=== PATIENT | female | born 1935 | race Caucasian/White ===

== ENCOUNTER 2016-11-04 14:50 | Outpatient (CLI) | payer MEDICARE, OTHER ==
--- NOTE | 2016-11-05 09:35 | Ultrasound Report ---
CAROTID DUPLEX: 11/04/2016 CLINICAL INDICATION: Vertigo in the evenings. TECHNIQUE: Real-time sonographic vascular imaging was performed by the licensed journeyman electrician through the carotid arteries utilizing both color-flow and Doppler spectral analysis. Multiple escrow representative static images were saved for review. Vessel PSV cm/sec 2D Plaque Estimate % ICA/CCA PSV EDV cm/sec % Stenosis RCCA Prox 97 -- RCCA Dist 76 14 RECA 127 -- RT BULB 88 -- 1.15 15 HUSSAIN Prox 70 -- 0.92 14 HUSSAIN Mid 104 -- 1.36 29 HUSSAIN Dist 89 -- 1.17 22 RVA 50 RVA flow direction: Antegrade. Vessel PSV cm/sec 2D Plaque Estimate % ICA/CCA PSV EDV cm/sec % Stenosis LCCA Prox 111 -- LCCA Dist 90 18 LECA 78 -- LFT BULB 43 -- 0.47 10 LICA Prox 80 -- 0.88 22 LICA Mid 69 -- 0.76 21 LICA Dist 82 -- 0.91 20 LVA 50 LVA flow direction: Antegrade. Velocity criteria are extrapolated from diameter data as defined by the Society of Radiologists in Ultrasound Consensus Conference Radiology 2003; 229; 340-346. Degree of Stenosis % ICA PSV cm/sec Plaque Estimate % ICA/CCA RSV Ratio ICA EDV cm/sec Normal < 125 None < 2.0 < 40 <50 < 125 < 50 < 2.0 < 40 50-69 125 - 130 >/= 50 2.0 - 4.0 40 - 100 >/= 70 but less than near occlusion > 230 >/= 50 > 4.0 > 100 Near occlusion High, low, or undetectable Visible lumen Variable Variable Total occlusion Undetectable No detectable lumen Not applicable Not applicable FINDINGS RIGHT: There is mild calcified plaquing in the right carotid bifurcation, without evidence of a focal hemodynamically significant stenosis. LEFT: There is mild calcified plaquing in the left carotid bifurcation, without evidence of a focal hemodynamically significant stenosis. The vertebral arteries demonstrate antegrade flow bilaterally. Note is made of a right thyroid nodule. Consider formal thyroid ultrasound for further characterization. IMPRESSION: NO EVIDENCE OF A FOCAL HEMODYNAMICALLY SIGNIFICANT CAROTID STENOSIS. MTDD
== END 2016-11-04 14:51 | disposition home or self-care (01) ==
LOC: DI 14:50
PROVIDERS: ATTEND Nurse Practitioner Family
DX: R42 Dizziness and giddiness (principal)
CPT/HCPCS: 93880

== ENCOUNTER 2018-01-28 08:47 | Outpatient (CLI) | payer MEDICARE, OTHER ==
[2018-01-28 09:18] LABS: BASOPHILS % (AUTO) 1.4 %; HGB - HEMOGLOBIN 12.1 g/dL (12.0-16.0); LYMPHOCYTES % (AUTO) 17.7 %; MEAN CORPUSCULAR HEMOGLOBIN 29.1 pg (27.0-31.0); MEAN CORPUSCULAR HGB CONC 32.8 g/dL (32.0-36.0); MEAN CORPUSCULAR VOLUME 88.6 fL (81.0-99.0); MEAN PLATELET VOLUME 7.7 fL (7.9-10.8); MONOCYTES % (AUTO) 7.8 %; NEUTROPHILS % (AUTO) 72.1 %; PLT - PLATELET COUNT 782 10^3/uL (130-450); RED BLOOD COUNT 4.18 10^6/uL (4.20-5.40); RED CELL DISTRIBUTION WIDTH 32.2 % (12.0-15.0); WHITE BLOOD COUNT 8.8 x10^3/uL (4.8-10.8)
[2018-01-28 09:21] LABS: ABNORMAL LYMPHS % (MANUAL) 0 %
[2018-01-28 10:09] LABS: BAND NEUTROPHILS % (MANUAL) 2 %; BASOPHILS # (MANUAL) 0.1 10^3/uL (0-0.1); BASOPHILS % (MANUAL) 1 %; EOSINOPHILS # (MANUAL) 0.3 10^3/uL (0-0.7); LYMPHOCYTES # (MANUAL) 1.6 10^3/uL (1.5-3.5); LYMPHOCYTES % (MANUAL) 15 %; MONOCYTES # (MANUAL) 0.9 10^3/uL (0.0-1.0); NEUTROPHILS % (MANUAL) 66 %
[2018-01-28 10:12] LABS: DIFFERENTIAL COMMENT MANUAL DIFFERENTIAL; PLATELET ESTIMATE, MANUAL INCREASED (>450,000) (NORMAL); PLATELET MORPHOLOGY 1+ GIANT PLATELETS (NORMAL)
== END 2018-01-28 08:48 | disposition home or self-care (01) ==
LOC: LAB 08:47
PROVIDERS: ATTEND Physician Assistant
DX: D64.9 Anemia, unspecified (principal); D47.3 Essential (hemorrhagic) thrombocythemia
CPT/HCPCS: 36415; 82728; 85025

== ENCOUNTER 2018-05-26 07:16 | Day surgery (SDC) | payer MEDICARE, OTHER ==
[~2018-05-26 07:16] MED LIST: BRIMONIDINE 0.2% OPHTH DROPS 5 ML ONE; BSS/LIDOCAINE/EPINEPHRINE 1 ML SYRINGE ONE; EPINEPHrine 1 MG/ML AMP ONE; TIMOLOL 0.5% OPHTH DROPS ONE; TRIAMCIN/MOXIFLOX OPHTHALMIC 0.6 ML VIAL IO ONE; VANCOMYCIN OPHTHALMI 8MG/0.8ML 8 MG/0.8 ML SYRINGE IO ONE
[2018-05-26] MEDS ORDERED: KETOROLAC 0.45% OPHTH DROPS ONE (07:22)
[2018-05-26] MEDS ORDERED: PHENYLEPHRINE 2.5% OPHTH 2 ML DROPS ONE (07:22)
[2018-05-26] MEDS ORDERED: CYCLOPENTOLATE 1% OPHTH DROPS 2 ML ONE (07:23)
[2018-05-26] MEDS ORDERED: PROPARACAINE 0.5% OPHTH DROPS 15 ML ONE (07:23)
[2018-05-26] MEDS ORDERED: KETOROLAC 0.45% OPHTH DROPS LEFTEYE ONE (07:45)
[2018-05-26] MEDS ORDERED: PROPARACAINE 0.5% OPHTH DROPS 15 ML LEFTEYE ONE ×2 (07:45→08:44)
[2018-05-26] MEDS ORDERED: CYCLOPENTOLATE 1% OPHTH DROPS 2 ML LEFTEYE ONE (07:45)
[2018-05-26] MEDS ORDERED: PHENYLEPHRINE 2.5% OPHTH 2 ML DROPS LEFTEYE ONE (07:45)
[2018-05-26] MEDS ORDERED: LACTATED RINGERS 500 ML IV ONE (07:52)
--- NOTE | 2018-05-26 07:55 | ANESTHESIA ---
Pre-Anesthesia VS, & Labs - Diagnosis left senile combined cataract - Procedure left extraction cataract with lens implant Vital Signs: Temp Pulse Resp BP Pulse Ox 36.6 C 16 132/83 H 98 05/26/18 07:39 05/26/18 07:39 05/26/18 07:39 05/26/18 07:39 Height 5 ft 4 in Weight (kg) 50 kg Body Mass Index 18.4 - Is Patient ?: Not Applicable - Lab Results Lab results reviewed: Yes Home Medications and Allergies Home Medications: Ambulatory Orders Medication Instructions Recorded Confirmed Calcium/Magnesium/Zinc 1 tab PO DAILY 03/02/18 05/25/18 [[id number]-[id number]-Zdfj Tablet] Folic Acid 1 tab PO DAILY 03/02/18 05/25/18 B Complex with Vitamin C [Vitamin 1 each PO DAILY 05/25/18 05/25/18 B-Complex with Vit C] Allergies/Adverse Reactions: Allergies Allergy/AdvReac Type Severity Reaction Status Date / Time No Known Drug Allergies Allergy Verified 05/25/18 14:39 Anes History & Medical History - Anesthetic History Anesthesia Complications: reports: No previous complications Family history of Anesthesia Complications: Denies Family history of Malignant Hyperthermia: Denies - Medical History Cardiovascular: reports: None Pulmonary: reports: None Gastrointestinal: reports: None Urinary: reports: None Neuro: reports: None Musculoskeletal: reports: Rheumatoid arthritis Endocrine/Autoimmune: reports: None Blood Disorders: reports: Anemia Skin: reports: None Exam General: Alert, Oriented x3, Cooperative, No acute distress Dental: Dentures full Upper, Dentures full Lower Mouth Openin Fingerbreadth Neck Mobility: Normal Mallampati classification: II Thyromental Distance: greater than 6 cm Respiratory: Lungs clear, Normal breath sounds, No respiratory distress, No accessory muscle use Cardiovascular: Normal S1, Normal S2, Other (murmur) Mental/Cognitive Status: Alert/Oriented X3, Normal for patient Cognitive Status: Within normal limits Plan Anesthesia Type: MAC Consent for Procedure(s) Verified and Reviewed: Yes Code Status: Attempt Resuscitation ASA classification: 1-Healthy patient Is this case an emergency?: No
[2018-05-26] MEDS ORDERED: VANCOMYCIN OPHTHALMI 8MG/0.8ML 8 MG/0.8 ML SYRINGE IO ONE (08:42)
[2018-05-26] MEDS ORDERED: BRIMONIDINE 0.2% OPHTH DROPS 5 ML OPTH ONE (08:42)
[2018-05-26] MEDS ORDERED: EPINEPHrine 1 MG/ML AMP IR ONE (08:42)
[2018-05-26] MEDS ORDERED: TIMOLOL 0.5% OPHTH DROPS OPTH ONE (08:43)
[2018-05-26] MEDS ORDERED: BSS/LIDOCAINE/EPINEPHRINE 1 ML SYRINGE IO ONE (08:43)
[2018-05-26] MEDS ORDERED: CHONDR SULF/HYALURONATE SYRINGE IO ONE (08:43)
[2018-05-26] MEDS ORDERED: TRIAMCIN/MOXIFLOX/VANCO 1 ML VIAL IO ONE (08:43)
[2018-05-26] MEDS ORDERED: MIDAZOLAM 2 MG/2 ML VIAL IVP ONE (08:50)
[2018-05-26 09:10] VITALS: BP 113/66
--- NOTE | 2018-05-26 11:26 | OPERATIVE REPORT ---
DATE OF SERVICE: 05/26/2018 Physician: Farhat Silva MD PREOPERATIVE DIAGNOSIS: Visually significant cataract, left eye. This was her first cataract surger y. POSTOPERATIVE DIAGNOSIS: Visually significant cataract, left eye. This was her first cataract surge ry. NAME OF PROCEDURE: Phacoemulsification with posterior chamber intraocular lens implant, left eye. SURGEON: Farhat Silva MD ANESTHESIA: Monitored anesthesia care. COMPLICATIONS: None. OPERATIVE INDICATIONS: This is an 83-year-old woman with progressive vision loss in the left eye due to 3+ nuclear sclerotic and vacuolar cataract. Best corrected visual acuity was 20/50, with glare t o 20/250 in the left eye. Indications for surgery are overall decrease in vision, difficulty seeing street signs, difficulty driving in low light or at night, difficulty driving at night because of hea dlights from other vehicles and/or street lights, and difficulty with glare or bright lights in any s ituation. She was consented at length concerning risks and benefits of cataract surgery, after which she expressed a desire to proceed with surgery. OPERATIVE PROCEDURE: The patient was taken into OR #3 and placed under monitored anesthesia care. A surgical timeout was conducted confirming correct patient, correct procedure, and correct surgical s ite. She was given topical anesthesia, and then prepped and draped in the usual sterile fashion. Th e eye was entered at the 6 and 3 o'clock positions. Intracameral Shugarcaine was injected into the a nterior chamber, followed by Viscoat. A continuous-tear curvilinear capsulorrhexis was performed. T he nucleus was hydrodissected and phacoemulsified. The cortex was evacuated using automated infusion and aspiration. Provisc was injected in the capsular bag, and a 22.5 diopter intraocular lens inser kiara in the bag. Approximately 0.8 mL of a mixture of triamcinolone, moxifloxacin and vancomycin was injected subconjunctivally in the superior quadrant for infection and inflammation prophylaxis. I an d A was used to evacuate the viscoelastic materials. The eye was inflated to physiologic pressure us ing balanced salt solution, and found to be watertight. The patient was taken from the operating daniella m in good condition, and given postoperative instructions. TD: 05/26/2018 09:11
== END 2018-05-26 07:17 | disposition home or self-care (01) ==
LOC: SDS 07:16
PROVIDERS: ATTEND Ophthalmology
PROC: 08RK3JZ Replacement of Left Lens with Synthetic Substitute, Percutaneous Approach (ICD-10-PCS; principal; 2018-05-26 08:30)
DX: H25.812 Combined forms of age-related cataract, left eye (principal)
CPT/HCPCS: 66984; A9270; J3490; V2632

== ENCOUNTER 2019-11-07 13:18 | Outpatient (CLI) | payer MEDICARE, OTHER ==
--- NOTE | 2019-11-08 10:12 | XRAY Report ---
Reason: COUGH Procedure Date: 11/07/2019 Accession Number: [id number] / [id number] Procedure: XR - Chest 2 View X-Ray CPT Code: 39094 Final Report FULL RESULT: EXAM: CHEST RADIOGRAPHY EXAM DATE: 11/07/2019 01:42 PM. CLINICAL HISTORY: Cough. COMPARISON: None. TECHNIQUE: 2 views. FINDINGS: Lungs/Pleura: Hyperinflation. Mild scarring in the upper lobes. No focal infiltrate or effusion. Mediastinum: Heart and mediastinal contours are unremarkable. Other: Mild chronic appearing compression deformities of multiple thoracic vertebra, approximately T6-T11 on the order of 10-15% each. Diffuse osteopenia. IMPRESSION: 1. Hyperinflation and some scarring consistent with emphysema. No infiltrate. 2. Mild chronic midthoracic compression deformities. Diffuse osteopenia. RADIA
== END 2019-11-07 13:19 | disposition home or self-care (01) ==
LOC: DI 13:18
PROVIDERS: ATTEND Nurse Practitioner Family
DX: R05 Cough (principal)
CPT/HCPCS: 71046

== ENCOUNTER 2020-04-19 08:46 | Outpatient (CLI) | payer MEDICARE, OTHER | END 2020-04-19 08:47 | disposition home or self-care (01) | LOC: DI 08:46 | PROVIDERS: ATTEND Physician Assistant | DX: I35.0 Nonrheumatic aortic (valve) stenosis (principal); I07.1 Rheumatic tricuspid insufficiency | CPT/HCPCS: 93306 ==

== ENCOUNTER 2020-08-15 13:07 | Outpatient (CLI) | payer MEDICARE, OTHER ==
--- NOTE | 2020-08-15 14:46 | XRAY Report ---
PROCEDURE: Chest 2 View X-Ray INDICATIONS: PAIN IN THORACIC SPINE TECHNIQUE: 2 view(s) of the chest. COMPARISON: None. FINDINGS: Surgical changes and devices: None. Lungs and pleura: Bilateral pleural effusions. Diffuse interstitial prominence with suggestion of vas cular congestion. No focal consolidation. No pneumothorax. Mediastinum: Mediastinal contours are stable. Heart size is mildly enlarged. Bones and chest wall: Diffuse osteopenia. Relatively stable appearance of chronic anterior compressi on deformities of the midthoracic spine with associated increased thoracic kyphosis. No suspicious erin ny abnormalities. Soft tissues appear unremarkable. IMPRESSION: 1. Mild cardiomegaly and bilateral pleural effusions with findings consistent with pulmonary edema/CH F. 2. Diffuse osteopenia with relatively stable appearance of mild anterior compression deformities of t he mid thoracic spine. Reviewed by: Juma Smart MD on 08/15/2020 2:45 PM PST Approved by: Juma Smart MD on 08/15/2020 2:45 PM PST Station ID: [id number]
== END 2020-08-15 13:08 | disposition home or self-care (01) ==
LOC: DI.S 13:07
PROVIDERS: ATTEND Nurse Practitioner Family
DX: I51.7 Cardiomegaly (principal); J90 Pleural effusion, not elsewhere classified; M85.88 Other specified disorders of bone density and structure, other site
CPT/HCPCS: 71046

== ENCOUNTER 2020-10-03 13:34 | Outpatient (CLI) | payer MEDICARE, OTHER | END 2020-10-03 13:35 | disposition home or self-care (01) | LOC: RT 13:34 | PROVIDERS: ATTEND Internal Medicine Cardiovascular Disease | DX: I50.9 Heart failure, unspecified (principal) | CPT/HCPCS: 93005 ==

== ENCOUNTER 2020-10-04 11:44 | Outpatient (CLI) | payer MEDICARE, OTHER ==
--- NOTE | 2020-10-04 14:28 | XRAY Report ---
PROCEDURE: Chest 2 View X-Ray INDICATIONS: BILATERAL PLEURAL EFFUSION TECHNIQUE: 2 view(s) of the chest. COMPARISON: 08/15/2020. FINDINGS: Surgical changes and devices: None. Lungs and pleura: There is mild diffuse interstitial prominence with hyperaeration and flattening of the hemidiaphragms. Previously seen bilateral pleural effusions have nearly completely resolved. Resi dual blunting of the bilateral costophrenic angles may represent tiny pleural effusions versus chroni c pleural thickening/scarring. No pneumothorax. No focal consolidation. Mediastinum: Mediastinal contours are stable. Heart size is enlarged. Bones and chest wall: No suspicious bony abnormalities. Soft tissues appear unremarkable. Diffuse osteopenia. Stable appearance of chronic anterior compression deformities of the midthoracic spine wi th associated thoracic kyphosis. IMPRESSION: 1. Near complete resolution of previously seen bilateral pleural effusions. Persistent blunting of th e bilateral costophrenic angles may represent tiny residual pleural effusion versus chronic pleural t hickening or scarring as there are findings compatible with chronic obstructive pulmonary physiology. 2. Cardiomegaly. 3. Diffuse osteopenia with stable appearance of mild anterior compression deformities of the midthora cic spine. Reviewed by: Juma Smart MD on 10/04/2020 2:27 PM PST Approved by: Juma Smart MD on 10/04/2020 2:27 PM PST Station ID: [id number]
== END 2020-10-04 11:45 | disposition home or self-care (01) ==
LOC: DI.S 11:44
PROVIDERS: ATTEND Nurse Practitioner Family
DX: J90 Pleural effusion, not elsewhere classified (principal); I51.7 Cardiomegaly

== ENCOUNTER 2020-10-31 08:00 | Outpatient (CLI) | payer MEDICARE, OTHER ==
[2020-10-31 10:51] LABS: CREATININE 0.7 mg/dL (0.4-1.0); POTASSIUM 5.7 mmol/L (3.5-5.0)
== END 2020-10-31 23:59 | disposition home or self-care (01) ==
LOC: LAB 08:00
PROVIDERS: ATTEND Internal Medicine Cardiovascular Disease
DX: I48.0 Paroxysmal atrial fibrillation (principal); R06.09 Other forms of dyspnea
CPT/HCPCS: 36415; 80048

== ENCOUNTER 2020-10-31 11:51 | Outpatient (CLI) | payer MEDICARE, OTHER ==
[2020-10-31 12:13] LABS: BASOPHILS # (AUTO) 0.1 10^3/uL (0.0-0.1); BASOPHILS % (AUTO) 1.2 %; EOSINOPHILS # (AUTO) 0.1 10^3/uL (0.0-0.7); EOSINOPHILS % (AUTO) 0.7 %; HGB - HEMOGLOBIN 12.5 g/dL (12.0-16.0); LYMPHOCYTES # (AUTO) 1.5 10^3/uL (1.5-3.5); LYMPHOCYTES % (AUTO) 13.9 %; MEAN CORPUSCULAR HEMOGLOBIN 31.7 pg (27.0-31.0); MEAN CORPUSCULAR HGB CONC 31.3 g/dL (32.0-36.0); MEAN CORPUSCULAR VOLUME 101.5 fL (81.0-99.0); MEAN PLATELET VOLUME 9.5 fL (7.9-10.8); MONOCYTES # (AUTO) 0.6 10^3/uL (0.0-1.0); MONOCYTES % (AUTO) 5.6 %; NEUTROPHILS # (AUTO) 8.1 10^3/uL (1.5-6.6); NEUTROPHILS % (AUTO) 75.2 %; PLT - PLATELET COUNT 772 10^3/uL (130-450); RED BLOOD COUNT 3.94 10^6/uL (4.20-5.40); RED CELL DISTRIBUTION WIDTH 28.9 % (12.0-15.0); WHITE BLOOD COUNT 10.7 x10^3/uL (4.8-10.8)
[2020-10-31 12:16] LABS: SLIDE REVIEW? Indicated
[2020-10-31 12:22] LABS: INR 1.3 (0.8-1.2)
[2020-10-31 12:43] LABS: PLATELET ESTIMATE, MANUAL INCREASED (>450,000) (NORMAL); PLATELET MORPHOLOGY NORMAL APPEARANCE (NORMAL)
[2020-10-31 12:44] LABS: WBC MORPHOLOGY (MULTIPLE) NORMAL APPEARANCE (NORMAL)
[2020-10-31 12:53] LABS: ALBUMIN 4.6 g/dL (3.2-5.5); ALBUMIN/GLOBULIN RATIO 1.6 (1.0-2.2); ALKALINE PHOSPHATASE 101 IU/L (42-121); ALT ALANINE AMINOTRANSFERASE 22 IU/L (10-60); AST ASPARTATE AMINOTRANSFERASE 29 IU/L (10-42); BILIRUBIN,TOTAL 0.9 mg/dL (0.2-1.0); BUN - BLOOD UREA NITROGEN 19 mg/dL (6-20); CALCIUM 9.9 mg/dL (8.5-10.3); CARBON DIOXIDE - CO2 29 mmol/L (21-32); CHLORIDE 95 mmol/L (101-111); CHOL/HDL RATIO 2.4 (<4.4); CHOLESTEROL 157 mg/dL; CREATININE 0.7 mg/dL (0.4-1.0); GFR - MDRD 80 (>89); GLUCOSE 89 mg/dL (70-100); HDL CHOLESTEROL 66 mg/dL; LDL CHOLESTEROL,CALCULATED 80 mg/dL; LDL/HDL RATIO 1.2 (<4.4); SODIUM 137 mmol/L (135-145); TOTAL PROTEIN 7.5 g/dL (6.7-8.2); TRIGLYCERIDES 53 mg/dL; VLDL CHOLESTEROL 11 mg/dL
[2020-10-31 13:04] LABS: THYROID STIMULATING HORMONE 1.8 uIU/mL (0.34-5.60)
== END 2020-10-31 11:52 | disposition home or self-care (01) ==
LOC: LAB 11:51
PROVIDERS: ATTEND Internal Medicine Cardiovascular Disease
DX: I48.0 Paroxysmal atrial fibrillation (principal); I50.9 Heart failure, unspecified; R06.09 Other forms of dyspnea
CPT/HCPCS: 36415; 80048; 80053; 80061; 83721; 83880; 84443; 85025; 85610

== ENCOUNTER 2020-12-06 13:51 | Outpatient (CLI) | payer MEDICARE, OTHER | END 2020-12-06 13:52 | disposition home or self-care (01) | LOC: LAB.S 13:51 | PROVIDERS: ATTEND Internal Medicine Cardiovascular Disease | DX: I48.20 Chronic atrial fibrillation, unspecified (principal) | CPT/HCPCS: 85610 ==

== ENCOUNTER 2020-12-18 10:07 | Outpatient (CLI) | payer MEDICARE, OTHER ==
[2020-12-18 10:28] LABS: CALCIUM 9.3 mg/dL (8.5-10.3); CREATININE 0.7 mg/dL (0.4-1.0); POTASSIUM 4.8 mmol/L (3.5-5.0)
== END 2020-12-18 10:08 | disposition home or self-care (01) ==
LOC: LAB 10:07
PROVIDERS: ATTEND Internal Medicine Cardiovascular Disease
DX: I48.0 Paroxysmal atrial fibrillation (principal); R06.09 Other forms of dyspnea
CPT/HCPCS: 36415; 80048

== ENCOUNTER 2020-12-20 11:42 | Outpatient (CLI) | payer MEDICARE, OTHER | END 2020-12-20 11:43 | disposition home or self-care (01) | LOC: LAB 11:42 | PROVIDERS: ATTEND Internal Medicine Cardiovascular Disease | DX: I48.20 Chronic atrial fibrillation, unspecified (principal) | CPT/HCPCS: 85610 ==

== ENCOUNTER 2020-12-23 10:18 | Outpatient (CLI) | payer MEDICARE, OTHER | END 2020-12-23 10:19 | disposition home or self-care (01) | LOC: LAB 10:18 | PROVIDERS: ATTEND Internal Medicine Cardiovascular Disease | DX: I48.20 Chronic atrial fibrillation, unspecified (principal) | CPT/HCPCS: 85610 ==

== ENCOUNTER 2020-12-31 12:31 | Outpatient (CLI) | payer MEDICARE, OTHER ==
[2020-12-31 14:57] LABS: BASOPHILS # (AUTO) 0.2 10^3/uL (0.0-0.1); BASOPHILS % (AUTO) 1.1 %; EOSINOPHILS # (AUTO) 0.1 10^3/uL (0.0-0.7); EOSINOPHILS % (AUTO) 0.5 %; LYMPHOCYTES # (AUTO) 1.6 10^3/uL (1.5-3.5); LYMPHOCYTES % (AUTO) 7.1 %; MEAN CORPUSCULAR HEMOGLOBIN 29.7 pg (27.0-31.0); MEAN CORPUSCULAR VOLUME 95.9 fL (81.0-99.0); MEAN PLATELET VOLUME 10.4 fL (7.9-10.8); MONOCYTES # (AUTO) 0.8 10^3/uL (0.0-1.0); MONOCYTES % (AUTO) 3.6 %; NEUTROPHILS # (AUTO) 18.4 10^3/uL (1.5-6.6); NEUTROPHILS % (AUTO) 82.2 %; NRBC ABSOLUTE COUNT (AUTO) 0.03 x10^3/uL; NUCLEATED RED BLOOD CELLS AUTO 0.1 /100WBC; RED BLOOD COUNT 4.38 10^6/uL (4.20-5.40); WHITE BLOOD COUNT 22.4 x10^3/uL (4.8-10.8)
[2020-12-31 15:05] LABS: PLT - PLATELET COUNT 1035 10^3/uL (130-450)
[2020-12-31 15:49] LABS: % IRON SATURATION 14 % (20-50); BILIRUBIN,DIRECT 0.2 mg/dL (0.1-0.5); BILIRUBIN,TOTAL 1.2 mg/dL (0.2-1.0); BUN - BLOOD UREA NITROGEN 16 mg/dL (6-20); CALCIUM 9.3 mg/dL (8.5-10.3); CARBON DIOXIDE - CO2 30 mmol/L (21-32); CHLORIDE 96 mmol/L (101-111); CHOL/HDL RATIO 2.8 (<4.4); CHOLESTEROL 152 mg/dL; CREATININE 0.7 mg/dL (0.4-1.0); GFR - MDRD 80 (>89); GLUCOSE 122 mg/dL (70-100); HDL CHOLESTEROL 54 mg/dL; IRON 41 ug/dL (28-170); LDL CHOLESTEROL,CALCULATED 83 mg/dL; LDL/HDL RATIO 1.5 (<4.4); POTASSIUM 4.4 mmol/L (3.5-5.0); SODIUM 132 mmol/L (135-145); TOTAL IRON BINDING CAPACITY 302 ug/dL (250-450); TRANSFERRIN 216 mg/dL (192-382); TRIGLYCERIDES 77 mg/dL; VLDL CHOLESTEROL 15 mg/dL
--- NOTE | 2020-12-31 15:56 | XRAY Report ---
PROCEDURE: Chest 2 View X-Ray INDICATIONS: PLEURAL EFFUSION TECHNIQUE: 2 view(s) of the chest. COMPARISON: None. FINDINGS: Surgical changes and devices: None. Lungs and pleura: No pleural effusions or pneumothorax. Lungs are abnormal with large lung volumes consistent with severe COPD and also there is a pattern of bilateral patchy alveolar airspace disease seen at the mid and lower lungs, this may reflect conventional pneumonia or even atypical pneumonia. Very slight subpulmonic pleural effusions can be seen blunting the costophrenic sulcus of each hyper expanded lung.. Mediastinum: Mediastinal contours are normal. Heart size is enlarged. Bones and chest wall: No suspicious bony abnormalities. Soft tissues appear unremarkable. IMPRESSION: Chronic lung disease, COPD, cardiomegaly and slight subpulmonic pleural effusions. Patch y alveolar airspace disease, potentally atypical pneumonia. The amount of pleural fluid present is no t sufficient for thoracentesis. Reviewed by: Rocael Nathan MD on 12/31/2020 3:55 PM PDT Approved by: Rocael Nathan MD on 12/31/2020 3:55 PM PDT Station ID: [id number]
[2020-12-31 15:57] LABS: PT - PROTHROMBIN TIME 21.5 secs (9.9-12.6)
[2020-12-31 15:59] LABS: PLATELET ESTIMATE, MANUAL INCREASED (>450,000) (NORMAL); PLATELET MORPHOLOGY 1+ LARGE PLATELETS (NORMAL)
== END 2020-12-31 12:32 | disposition home or self-care (01) ==
LOC: DI.S 12:31
PROVIDERS: ATTEND Nurse Practitioner Family
DX: J44.9 Chronic obstructive pulmonary disease, unspecified (principal); I51.7 Cardiomegaly; I48.20 Chronic atrial fibrillation, unspecified; I10 Essential (primary) hypertension; E55.9 Vitamin D deficiency, unspecified; Z13.220 Encounter for screening for lipoid disorders; D50.9 Iron deficiency anemia, unspecified; R17 Unspecified jaundice; J90 Pleural effusion, not elsewhere classified
CPT/HCPCS: 36415; 80048; 80061; 82247; 82248; 82306; 82607; 83540; 83721; 84466; 85025; 85610

== ENCOUNTER 2021-01-03 08:00 | Outpatient (CLI) | payer MEDICARE, OTHER ==
--- NOTE | 2021-01-03 18:29 | XRAY Report ---
PROCEDURE: Chest 2 View X-Ray INDICATIONS: SHORTNESS OF BREATH/ADVERSE EFFECT OF MEDICATION TECHNIQUE: 2 views of the chest. COMPARISON: Chest radiographs 12/31/2020 and 10/04/2020. FINDINGS: Surgical changes and devices: None. Lungs and pleura: The lungs are hyperexpanded bilaterally. Trace bilateral pleural effusions do not appear significantly changed when compared to the radiographs from 12/31/2020. No pneumothorax. Interst itial prominence is again seen throughout both lungs. Mild bibasilar opacities again may represent co nsolidations. Mediastinum: Mediastinal contours are normal. Heart size is enlarged and stable. Bones and chest wall: There is stenosis opinion. Anterior wedging deformities in the midthoracic spin e do not appear significant changed when compared to recent prior radiographs. IMPRESSION: 1. Overall, no significant change when compared to the radiographs from 12/31/2020. 2. Small airspace opacities are again seen in the lung bases bilaterally that may represent atelecta sis, edema, or pneumonia. 3. Stable cardiomegaly. Trace bilateral pleural effusions are unchanged. 4. Hyperexpanded lungs can be seen in the setting of COPD. Reviewed by: Galen Guzman MD on 01/03/2021 6:28 PM PDT Approved by: Galen Guzman MD on 01/03/2021 6:28 PM PDT Station ID: [id number]
== END 2021-01-03 23:59 | disposition home or self-care (01) ==
LOC: DI.S 08:00
PROVIDERS: ATTEND Physician Assistant Medical
DX: T50.905A Adverse effect of unspecified drugs, medicaments and biological substances, initial encounter (principal); J44.9 Chronic obstructive pulmonary disease, unspecified

== ENCOUNTER 2021-01-03 11:38 | Outpatient (CLI) | payer MEDICARE, OTHER ==
[2021-01-03 20:09] LABS: EOSINOPHILS % (AUTO) 0.5 %; HCT - HEMATOCRIT 40.2 % (37.0-47.0); LYMPHOCYTES % (AUTO) 7.2 %; MEAN CORPUSCULAR HEMOGLOBIN 30.4 pg (27.0-31.0); MEAN CORPUSCULAR HGB CONC 32.3 g/dL (32.0-36.0); MEAN CORPUSCULAR VOLUME 93.9 fL (81.0-99.0); MEAN PLATELET VOLUME 9.7 fL (7.9-10.8); MONOCYTES % (AUTO) 5.1 %; NEUTROPHILS % (AUTO) 80.7 %; PLT - PLATELET COUNT 783 10^3/uL (130-450); RED BLOOD COUNT 4.28 10^6/uL (4.20-5.40); RED CELL DISTRIBUTION WIDTH 28.1 % (12.0-15.0); WHITE BLOOD COUNT 20.3 x10^3/uL (4.8-10.8)
[2021-01-03 20:19] LABS: ALBUMIN 4.1 g/dL (3.2-5.5); ALBUMIN/GLOBULIN RATIO 1.4 (1.0-2.2); CALCIUM 9.3 mg/dL (8.5-10.3); CREATININE 0.7 mg/dL (0.4-1.0); TOTAL PROTEIN 7.1 g/dL (6.7-8.2)
[2021-01-03 20:29] LABS: ABNORMAL LYMPHS % (MANUAL) 0 %
[2021-01-03 21:05] LABS: BAND NEUTROPHILS % (MANUAL) 19 %; EOSINOPHILS # (MANUAL) 0.2 10^3/uL (0-0.7); LYMPHOCYTES # (MANUAL) 0.8 10^3/uL (1.5-3.5); LYMPHOCYTES % (MANUAL) 4 %; MONOCYTES # (MANUAL) 0.8 10^3/uL (0.0-1.0); NEUTROPHILS # (MANUAL) 18.5 10^3/uL (1.5-6.6)
[2021-01-03 21:08] LABS: PLATELET ESTIMATE, MANUAL INCREASED (>450,000) (NORMAL)
[2021-01-03 21:09] LABS: DIFFERENTIAL COMMENT MANUAL DIFFERENTIAL
== END 2021-01-03 11:39 | disposition home or self-care (01) ==
LOC: LAB.S 11:38
PROVIDERS: ATTEND Internal Medicine Cardiovascular Disease
DX: I48.20 Chronic atrial fibrillation, unspecified (principal); D47.3 Essential (hemorrhagic) thrombocythemia; J15.9 Unspecified bacterial pneumonia
CPT/HCPCS: 36415; 80053; 85025; 85610

== ENCOUNTER 2021-01-06 13:33 | Outpatient (CLI) | payer MEDICARE, OTHER | END 2021-01-06 13:34 | disposition home or self-care (01) | LOC: LAB.S 13:33 | PROVIDERS: ATTEND Internal Medicine Cardiovascular Disease | DX: I48.20 Chronic atrial fibrillation, unspecified (principal) | CPT/HCPCS: 85610 ==

== ENCOUNTER 2021-01-09 10:48 | Outpatient (CLI) | payer MEDICARE, OTHER | END 2021-01-09 10:49 | disposition home or self-care (01) | LOC: LAB 10:48 | PROVIDERS: ATTEND Internal Medicine Cardiovascular Disease | DX: I48.20 Chronic atrial fibrillation, unspecified (principal) | CPT/HCPCS: 85610 ==

== ENCOUNTER 2021-01-13 13:07 | Outpatient (CLI) | payer MEDICARE, OTHER | END 2021-01-13 13:08 | disposition home or self-care (01) | LOC: LAB.S 13:07 | PROVIDERS: ATTEND Internal Medicine Cardiovascular Disease | DX: I48.20 Chronic atrial fibrillation, unspecified (principal) | CPT/HCPCS: 85610 ==

== ENCOUNTER 2021-01-16 09:45 | Outpatient (CLI) | payer MEDICARE, OTHER | END 2021-01-16 09:46 | disposition home or self-care (01) | LOC: LAB.S 09:45 | PROVIDERS: ATTEND Internal Medicine Cardiovascular Disease | DX: I48.20 Chronic atrial fibrillation, unspecified (principal) | CPT/HCPCS: 85610 ==

== ENCOUNTER 2021-01-20 11:04 | Outpatient (CLI) | payer MEDICARE, OTHER | END 2021-01-20 11:05 | disposition home or self-care (01) | LOC: LAB.S 11:04 | PROVIDERS: ATTEND Internal Medicine Cardiovascular Disease | DX: I48.20 Chronic atrial fibrillation, unspecified (principal) | CPT/HCPCS: 85610 ==

== ENCOUNTER 2021-01-28 10:07 | Outpatient (CLI) | payer MEDICARE, OTHER | END 2021-01-28 10:08 | disposition home or self-care (01) | LOC: DI 10:07 | PROVIDERS: ATTEND Internal Medicine Cardiovascular Disease | DX: I48.91 Unspecified atrial fibrillation (principal); I35.0 Nonrheumatic aortic (valve) stenosis | CPT/HCPCS: 93306 ==

== ENCOUNTER 2021-01-31 10:24 | Outpatient (CLI) | payer MEDICARE, OTHER | END 2021-01-31 10:25 | disposition home or self-care (01) | LOC: LAB.S 10:24 | PROVIDERS: ATTEND Internal Medicine Cardiovascular Disease | DX: I48.20 Chronic atrial fibrillation, unspecified (principal) | CPT/HCPCS: 36416; 85610 ==

== ENCOUNTER 2021-02-01 | Outpatient (CLI) | payer MEDICARE, OTHER ==
--- NOTE | 2021-02-01 12:38 | Ultrasound Report ---
PROCEDURE: Abdomen Limited INDICATIONS: SPLENOMEGALY TECHNIQUE: Real-time focused scanning was performed of the abdomen, with image documentation. COMPARISON: 03/16/2018 FINDINGS: The spleen measures 17 x 4.5 x 6.8 cm, with a calculated volume of 683 cc. On the 2018 exa mination, the spleen measures up to 13 cm in length, with a calculated volume of 396 cc. IMPRESSION: Splenomegaly, which is clearly increased compared to 2018. Reviewed by: Eleno Li MD on 02/01/2021 11:37 AM JC Approved by: Eleno Li MD on 02/01/2021 11:37 AM JC Station ID: [id number]
== END 2021-02-01 23:59 | disposition home or self-care (01) ==
LOC: DI
PROVIDERS: ATTEND Internal Medicine Hematology & Oncology
DX: R16.1 Splenomegaly, not elsewhere classified (principal)

== ENCOUNTER 2021-02-03 09:17 | Outpatient (CLI) | payer MEDICARE, OTHER ==
[2021-02-03] MEDS ORDERED: ALBUTEROL 1 PUFF INH STA (10:36)
--- NOTE | 2021-02-03 12:20 | XRAY Report ---
PROCEDURE: Chest 2 View X-Ray INDICATIONS: pneumonia TECHNIQUE: 2 view(s) of the chest. COMPARISON: 2 view chest 01/03/2021 reviewed.. FINDINGS: Surgical changes and devices: None. Lungs and pleura: Lung volumes are large, suspect COPD. Resolution of prior subpulmonic pleural effu sions from the comparison study approximately one month ago. Mediastinum: Mediastinal contours are normal. Heart size is globally enlarged,. Bones and chest wall: No suspicious bony abnormalities. Soft tissues appear unremarkable. IMPRESSION: Large lung volumes, suspect COPD. Chronic cardiomegaly, probable chronic CHF but current ly no definite pulmonary edema is found. Reviewed by: Rocael Nathan MD on 02/03/2021 12:19 PM PDT Approved by: Rocael Nathan MD on 02/03/2021 12:19 PM PDT Station ID: [id number]
== END 2021-02-03 09:18 | disposition home or self-care (01) ==
LOC: RT 09:17 → DI 09:18
PROVIDERS: ATTEND Nurse Practitioner Family
DX: R93.89 Abnormal findings on diagnostic imaging of other specified body structures (principal); I51.7 Cardiomegaly; J18.9 Pneumonia, unspecified organism
CPT/HCPCS: 94060

== ENCOUNTER 2021-02-06 11:22 | Outpatient (CLI) | payer MEDICARE, OTHER | END 2021-02-06 11:23 | disposition home or self-care (01) | LOC: LAB.S 11:22 | PROVIDERS: ATTEND Internal Medicine Cardiovascular Disease | DX: I48.20 Chronic atrial fibrillation, unspecified (principal) | CPT/HCPCS: 36416; 85610 ==